=== PATIENT | female | born 1955 | race Caucasian/White ===

== ENCOUNTER → 2018-01-08 | Outpatient (CLI) | payer OTHER ==
[~2018-01-08] MED LIST: ALBU8.5H8 INH; ATEN25TA PO; CYCL-259 PO; MONT10TA6 PO; OMEP-110 PO; SUMA1TAB PO; TRAM50TA2 PO
== END | disposition home or self-care (01) ==
LOC: RAD 16:17
PROVIDERS: ATTEND Nurse Practitioner Family
DX: M17.0 Bilateral primary osteoarthritis of knee (principal); M25.462 Effusion, left knee; M47.894 Other spondylosis, thoracic region; M47.892 Other spondylosis, cervical region; M47.896 Other spondylosis, lumbar region
CPT/HCPCS: 72050; 72072; 72114